=== PATIENT | male | born 1985 | race Hispanic/Latino ===

== ENCOUNTER 2024-03-10 10:58 | Inpatient (IN) | payer OTHER, SELFPAY ==
[2024-02-27 09:49] VITALS: BMI 27.8
[2024-03-10] VITALS (12 sets, daily range): BP systolic 110–137; BP diastolic 63–95; PULSE 75–99; RESP 12–20; TEMP 36–36.6; O2SAT 92–97; BMI 27.8
--- NOTE | 2024-03-10 | DI.RAD.S_ITS ---
PROCEDURE: XR LUMBAR SPINE 2-3V INDICATIONS: TLIF L5-S1 TECHNIQUE: Fluoroscopic views of the lumbar spine were acquired. COMPARISON: None. FINDINGS: Intraoperative images demonstrate an L5-S1 TLIF in progress. IMPRESSION: Intraoperative images of a L5-S1 TLIF in progress. Please see the operative report for further details. Dictated by: Chris Gordillo M.D. on 03/10/2024 at 16:41 Approved by: Chris Gordillo M.D. on 03/10/2024 at 16:42
[2024-03-10] MEDS: ACETAMINOPHEN 325 MG TABLET 975 MG PO (11:34)
[2024-03-10] MEDS: LACTATED RINGERS 1,000 ML 42 ML IV (11:36)
--- NOTE | 2024-03-10 11:48 | PM.PREOP ---
Pre-operative Note Interval Note History & Physical reviewed/Exam performed by Physician: Yes Changes to H&P: No
[2024-03-10] MEDS: CEFAZOLIN 2 GM/100 ML PREMIX 100 ML IV ×2 (12:25→21:13)
--- NOTE | 2024-03-10 12:47 | SUR.OPER ---
Prone on spine table, head in foam head support, padded chest and pelvic supports, gel pad at knees, lower legs supported by pillows; nipples, genitalia and toes free of pressure, arms secured on foam padded arm boards at <90 degrees abduction. Tape over blanket at thigh secured to table.
[2024-03-10] MEDS: BUPIVACAINE 0.25% (PF) 60 ML, EPINEPHrine 0.15 MG INJ (12:55)
[2024-03-10] MEDS: BUPIVACAINE LIPOSOME 266 MG/20 ML VIAL INJ (13:03)
--- NOTE | 2024-03-10 14:11 | PM.OP.1 ---
Operative Date/Time/Diagnoses Date of procedure: 03/10/24 Time of procedure: 12:30 Pre-op diagnosis: 1. L5-S1 history of hemilaminectomy with scarring 2. Lumbar recurrent disc herniation and radiculopathy Post-op diagnosis: same Procedure & Clinicians Procedure: 1. L5-S1 Postero-lateral and posterior interbody fusion 2. L5-S1 interbody cage placement. 3. L5-S1 decompressive laminectomy with bilateral facetecomies 4. L5-S1 Posterior non-segmental instrumentation 5. [place] of bone marrow from iliac crest 6. Utilization of microsurgical technique and operating microscope Same procedure as scheduled: Yes Indications: Patient has been having chronic back pain and worsening lumbar radiculopathy. Patient had prior lumbar surgery at L5-S1 with left-sided hemilaminectomy. Patient's MRI shows recurrent disc herniation L5-S1 with significant left-sided lateral recess and foraminal stenosis correlating with his symptoms. Patient failed multiple conservative management with worsening pain weakness and numbness in his lower extremity. Patient has been having difficulty performing activity of daily living. After discussing risks benefits of treatment options, patient elected proceed with surgery. Surgeon: Roya Shen Glass Decorator: Vijaya Stoner Click Yes if Unassisted: No Anesthesia Type: General Operative Notes Closure Type: primary Specimen(s): none sent Prosthetic devices, grafts, tissues, transplants, or devices: Globus revolve screws, Rise cage Estimated Blood Loss (mL): 50 Blood products transfused: none Procedure in detail: Patient was seen in the preoperative area. Risks and benefits of the surgery was discussed with the patient. Informed consent was obtained from the patient and placed in the chart. Surgical site was marked. Patient was taken to the operative room. General anesthesia was administered. Prophylactic antibiotic was given to the patient less than 30 min before the incision was made. Patient was placed into a prone position on the Clif table. Patient's back was then prepped and draped in the sterile fashion. Time-out was performed at this time. Using AP and lateral C-arm imaging the interval between L5-S1 was identified and marked on patient's back. A 2 inch incision 2 in from midline was made on the left side first. The fascia was incised in line with skin incision. Globus MARS retractors was placed inside the incision and docked onto the L5 lamina. Using microsurgical technique and operating microscope, a L5 laminectomy and L5-S1 facetectomy was performed using a Kerrison rongeur. Patient was found have severe lateral recess and neural foramen stenosis which was fully decompressed after the laminectomy facetectomy. The laminectomy and facetectomy was performed in order to decompress patient's cauda equina as well as the nerve roots exiting at the L5-S1 level. More than 75% of the facets were removed during the process of decompression rendering L5-S1 level grossly unstable and required a fusion procedure at the same time. The disc space at L5-S1 was identified. And a total diskectomy was performed at L5-S1 level. The endplates were decorticated using a rasp and shaver. The total diskectomy and decortication was performed at L5-S1 level in order to to accomplish a L5-S1 fusion. The local bone from the laminectomy and facetectomy was saved for local bone grafting. After the total diskectomy and decortication was completed,Viacel bone graft material was combined with local bone that was harvested earlier. At this time, a separate skin is incision was made over the iliac crest on the right. A Jamshidi needle was inserted into the iliac crest through a separate skin incision. 5 cc of bone marrow aspiration was obtained through the separate skin incision using a Jamshidi needle from the iliac crest. The bone marrow aspiration was combined with local bone and the Viacel bone grafting material. The bone grafting material was placed into the L5-S1 interbody space along with a expandable cage. The cage was expanded to its maximum height using the torque limiting screwdriver. At this time a mirror image incision was made on the right side. The fascia was incised in line with the skin incision. Globus MARS retractor was inserted and docked onto the L5-S1 posterolateral gutter. Using the power drill, posterior-lateral decortication was performed at L5-S1 level until bleeding cortical bone was identified. The remaining bone grafting material was placed into the L5-S1 posterior lateral gutter he order to accomplish posterolateral fusion at the L5-S1 level. Using the double C-arm technique, pedicle screws were placed into the L5-S1 pedicles bilaterally. This was done by placing the Jamshidi needle into the pedicles, then placing the guidewires over the Jamshidi needle, and finally placing the cannulated screws over the guidewires bilaterally. After the pedicle screws were placed, 2 titanium rods was locked into the heads of the pedicle screws using locking caps and torque limiting screwdriver. After all the hardware was placed, and confirmed with AP and lateral C-arm imaging, the wound was then irrigated with sterile normal saline and packed with Ray-Elli gauze for 3 min to accomplish hemostasis. After the gauze was removed the deep fascia was closed with #1 Vicryl suture. The subcutaneous layer was closed with 2-0 Vicryl. The skin was closed with skin nova. Patient tolerated the procedure well. There were no complications. Patient was woken up from anesthesia and transferred to recovery room in stable condition. The Operation could not have been safely performed without compromising the technical result or length of the procedure, without the assistance of a skilled nursing surgical services director. The nursing surgical services director was medically necessary for proper positioning, retraction and manipulation of instruments, proper exposure, surgical preparation, and manipulation of tissue. Neuro monitoring was utilized throughout entire procedure. The signals were stable throughout entire procedure without disturbance. Complications: none Post-operative Condition: stable Disposition: PACU Plan for aftercare: Admit to inpatient hospital
[2024-03-10] MEDS: ONDANSETRON 4 MG/2 ML INJ IV (14:28)
[2024-03-10] MEDS: OXYCODONE IR 5 MG TABLET PO ×2 (14:29→15:31)
[2024-03-10] MEDS: hydrOXYzine HCL 25 MG TABLET 50 MG PO (14:29)
[2024-03-10] MEDS: HYDROMORPHONE 1 MG INJ IV ×2 (14:31→14:40)
[2024-03-10] MEDS: diazePAM 10 MG/2 ML SYRINGE 2 MG IV (14:54)
[2024-03-10] MEDS: LACTATED RINGERS 1,000 ML 125 ML IV ×2 (15:30→20:20)
--- NOTE | 2024-03-10 15:50 | PT.IIE ---
Current Diagnoses Spinal stenosis, lumbar region with neurogenic claudication (03/10/24) Postlaminectomy syndrome, not elsewhere classified (03/10/24) Surgery Performed Operation Date: 03/10/24 12:15 Actual Procedures p L5-S1 TLIF(Not Applicable) - Roya Shen MD Surgical History (Last Updated 02/27/24 @ 10:17 by Keara Rossi, RN) History of right inguinal hernia repair Hx of laminectomy Hx of microdiscectomy Medical History (Last Updated 02/27/24 @ 10:17 by Keara Rossi, RN) ADD (attention deficit disorder) Depression HTN (hypertension) Physical Therapy Inpatient Evaluation/Re-Eval M1 PT/OT-IP Prior Functional Status Start: 03/10/24 16:34 Freq: NEEDED Status: Active Protocol: Document 03/10/24 15:50 AB (Rec: 03/10/24 16:55 AB [id number]) Medical Review Prior Functional Status Medical History Reviewed Yes Communication able to make needs known Mobility and Gait spouse provided PLOF and home set up: stated that pt was independent with all mobilities and ambulation without AD Social History Household Members spouse,children Living Arrangements House Number of Floors (Floors) One Floor Number of Stairs To Enter/Railing? 1 step without railing to enter. 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 Additional Social History Comment spouse will be off work to assist pt pt works for a [employer] M2 PT-IP Current Condition Start: 03/10/24 16:34 Freq: NEEDED Status: Active Protocol: Document 03/10/24 15:50 AB (Rec: 03/10/24 16:55 AB [id number]) Physical Therapy Current Condition Current Condition Evaluation Date 03/10/24 Treatment Diagnosis s/p L5S1 TLIF; difficulty in walking Onset Date 03/10/24 M3 PT-IP Subjective Start: 03/10/24 16:34 Freq: NEEDED Status: Active Protocol: Document 03/10/24 15:50 AB (Rec: 03/10/24 16:55 AB [id number]) Subjective Physical Therapy Visit Type Type Initial Evaluation Visit Start Time 15:50 Visit Stop Time 16:30 Number of TEST AND RESEARCH REACTOR OPERATOR Visits 0 Physical Therapy Visit Comments Patient Comments c/o high back pain and wanting to move to relieve pain; pt is very restless Therapy Pain Assessment Pain When Pain Assessed At Rest Pain Present Pain Present Pain Reported Location Back Intensity 10 Scale Used Numeric (0 - 10) Pain Behaviors Facial Grimacing,Guarding, Holding Area,Moaning Pain Management Techniques Apply Cold,Distraction, Modification of Treatment,Re- positioning,Timing of Activity with Medications M4 PT-IP Mobility and Gait Start: 03/10/24 16:34 Freq: NEEDED Status: Active Protocol: Document 03/10/24 15:50 AB (Rec: 03/10/24 16:55 AB [id number]) PT-Bed Mobility Assessment Rolling Type of Rolling Log Rolling Level of Assist Maximal Assistance Sit to Supine Sit to Supine Maximum Assistance,1 Person Assistance,2 Person Assistance PT-Transfer Assessment Sit to and From Stand Sit to and from Stand Maximum Assistance,1 Person Assistance,2 Person Assistance ,Use of Upper Extremities Equipment Transfer Assistive Device Gait Belt,Front Wheeled Walker Orthotic/Prosthetic Devices or Brace: No Transfers Transfer Destination Bed,Chair Transfer Technique Stand Step Pivot Transfer Ability Level of Assist Maximum Assistance,1 Person Assistance,2 Person Assistance ,Use of Upper Extremities Comments Mobility Comments checked on pt and nurse in room assisting pt in standing. pt c/o increase back pain and is restless but at the same time is somnolent with eyes closed in standing. nurse stated that pt is having a lot of pain but all pain meds are given. pt wanting to move move. PT assisted. Instructed pt to sit back on EOB until chair is ready for pt. pt required max A for controlled descent to EOB and max cues. pt unsure of what he wants position fox and wants to get up again. educated pt on back precautions. pt completed sit to stand max A x 1-2 and max cues. sligth knee bending in standing and cued pt for upright posture and quads activation. pt ambulated ~ 3 ft to the chair using FWW max A x1-2 and max cues. positioned pt on chair. pt initially sitting upright but stated that he is still not comfortable. tried to elevated LE up but pt stated that pain is more with LE up. pt is very restless. opted to assist pt back to bed. sit to stand from chair max Ax 1-2 and max cues. step transfer back to bed using FWW max A x 1-2 and max cues. (+) knee buckling x 2. pt completed log roll sit to supine max Ax 1-2 and max cues. positioned pt in sidelying with ice pack on. talked with spouse and obtained PLOF and home set up. pt continues to be restless and stated that he cannot stay on his side. repositioned pt on his back. positioned with pillows under LE to relieve back pain. call light and table placed next to pt. educated pt and spouse regarding pt's back precautions and log roll bed mobility. Left pt with spouse. Gait Assessment Gait Gait Assistance Required: Maximum Assistance,1 Person Assist,2 Person Assist Distance (Feet) 3 Able to Maintain Weight Bearing Status Yes During Gait Assistive Devices Assistive Device Gait Belt,Front Wheeled Walker Orthotic/Prosthetic Devices or Brace: No Gait Deviations General Gait Pattern Ataxic,Decreased Stride Length ,Decreased Feet Clearance,Step -to Gait Factors Limiting Gait Function Factors Limiting Gait Function Decreased Activity Tolerance, Decreased Sensation,Decreased Strength,Difficulty Following Directions,Incoordination, Limited Range of Motion,Pain, Poor Balance,Poor Safety Awareness PT-Balance Assessment Sitting Balance and Reactions Static Sitting Balance Ability Good Dynamic Sitting Balance Ability Fair Standing Balance and Reactions Static Standing Balance Ability Poor Dynamic Standing Balance Ability Poor Device Used FWW M5 PT-IP Objective Assessments Start: 03/10/24 16:34 Freq: NEEDED Status: Active Protocol: Document 03/10/24 15:50 AB (Rec: 03/10/24 16:55 AB [id number]) Orientation Orientation/Cognition Level of Alertness Alert Orientation Name,Age,Place,Situation Language Function Ability No Deficits Noted Safety Awareness Decreased Safety Awareness Memory Description No Deficits Noted Gross Range of Motion Lower Extremity ROM Assessment Within Functional Limits Strength Comments Strength Comments pt with c/o increase pain with moving LE limiting MMT testing Sensation Assessment Sensation Sensation Description Numbness,Tingling Comments Sensation Comments c/o numbness/tingling on BLE Muscle Tone Muscle Tone WNL Yes M6 PT-IP Treatment Start: 03/10/24 16:34 Freq: NEEDED Status: Active Protocol: Document 03/10/24 15:50 AB (Rec: 03/10/24 16:55 AB [id number]) Physical Therapy Treatment Education Education Provided Precautions,Weight Bearing Status,Post-Op Packet,Safety M7 PT-IP Assessment and Plan Start: 03/10/24 16:34 Freq: NEEDED Status: Active Protocol: Document 03/10/24 15:50 AB (Rec: 03/10/24 16:55 AB [id number]) PT Summary Assessment and Plan Potential Rehabilitation Potential Fair Status of Condition at Evaluation Evolving Summary Impairments Pain,ROM,Strength,Balance, Coordination,Sensation,Tone, Cognition,Bed Mobility, Transfers,Gait,Activity Tolerance Assessment Summary pt is a 38 y/o M s/p L5S1 TLIF POD 0. pt with c/o increase LBP affecting mobility and safety. pt also somnolent affecting following directions and safety awareness. pt requiring max Ax 1-2 and max cues with (+) knee buckling . pt unable to tolerate much activity due to pain. pt's pain influencing current level of assistance. d/c plan depending on progress. spouse will be able to assist pt at home. caregiver training will be conducted when appropriate . will continue to assess. Goals Bed Mobility Goal Independent Transfer Goal Independent,Front Wheeled Walker Gait Goal Independent,Front Wheel Walker Gait Distance 200 Other Goals up/down 1 step using FWW mod I Days to Meet Goals 5 Frequency of Treatment Frequency Of Treatment Twice a Day Treatment Plan Physical Therapy Treatment Plan Bed Mobility Training,Transfer Training,Gait Training, Therapeutic Exercise,Balance Retraining,Post Op Education, Discharge Planning,Hot or Cold Pack,Neuromuscular Re-ed, Coordination Retraining,Manual Therapy Precautions Lumbar Precautions Log Roll,No Twisting,Limit Bending,Lifting Restriction of 10 lbs,Gait Belt above Incisional Area Recommendations To Nursing Amount of Assist Needed 2 Person Assist Discharge Recommendations PT Discharge Recommendations Home with 24/ Assist Available,Home Health Transportation Needs at Discharge Private Vehicle,Wheelchair/ Cabulance
[2024-03-10] MEDS: HYDROMORPHONE 0.5 MG INJ IV ×3 (16:46→23:08)
--- NOTE | 2024-03-10 17:14 | PC.NURSE ---
Patient arrived from PACU at 1510 this afternoon. He is alert, awake OX4, VSS, on 2 LNC. He expresses severe back pain despite many different narcotics and meds given in recovery. He is restless and not able to get comfortable, asks to sit at edge of bed. PT arrived and was able to get patient out of bed into chair. He wasn't able to tolerate sitting long and was assisted back to bed. Frequent POSTOP VS, admission assessment completed, PRN pain medications, IVF LR at 125mL/hr, encouraged IS use, bed alarm, call light in reach, and frequent rounding. Patient voided this evening w/o difficulty, denies n/v and able to tolerate a meal. at bedside supportive.
[2024-03-10] MEDS: OXYCODONE IR 10 MG TABLET PO ×2 (18:14→22:26)
[2024-03-10] MEDS: ACETAMINOPHEN 325 MG TABLET 650 MG PO (18:18)
[2024-03-10] MEDS: SENNOSIDES 8.6 MG TABLET 17.2 MG PO (21:13)
[2024-03-10] MEDS: DOCUSATE 100 MG CAPSULE PO (21:13)
[2024-03-11] MEDS: ACETAMINOPHEN 325 MG TABLET 650 MG PO ×4 (01:03→21:33)
[2024-03-11] MEDS: OXYCODONE IR 10 MG TABLET PO ×7 (01:03→21:33)
[2024-03-11] MEDS: CALCIUM CARBONATE 500 MG TAB 1000 MG PO ×2 (01:28→09:08)
[2024-03-11] MEDS: ONDANSETRON 4 MG ODT SL (03:43)
[2024-03-11] MEDS: CEFAZOLIN 2 GM/100 ML PREMIX 100 ML IV (05:03)
[2024-03-11] MEDS: HYDROMORPHONE 0.5 MG INJ IV ×4 (05:33→20:33)
[2024-03-11 05:41] VITALS: BP 107/66; PULSE 86; RESP 17; TEMP 36.4; O2SAT 96
[2024-03-11 08:00] VITALS: BP 122/62; PULSE 82; RESP 16; TEMP 36.6; O2SAT 98
--- NOTE | 2024-03-11 08:00 | P.PN_ITS ---
Subjective Subjective Interval history: Frank is a pleasant 38 year old male who is POD#1 s/p L5-S1 postero-lateral and posterior interbody fusion by Dr. Shen. This morning patient reports he is doing okay overall although he states he is still having significant pain. Difficulty sleeping d/t the pain. Feels okay at rest but says as soon as his IV Dilaudid wears off he gets shooting pains from his back down his legs. Has been putting an ice back on his back and he feels this has helped his pain. He has been able to get up and walk 3x since surgery but has not completed any formal PT yet. He is urinating well w/o issue using bedside urinal. Lives at home with who is willing and able to aid in his post-op care. He expresses concerns about d/c to home as he still has poor pain control and has not been able to ambulate more than a few feet at a time. Denies fever, chills, chest pain, SOB, nausea, vomiting. Exam Vital Signs (past 8 hours): - 03/11/24 05:41 Temperature 97.5 F L Pulse Rate 86 Respiratory Rate 17 Blood Pressure 107/66 Pulse Oximetry 96 Oxygen Delivery Method Room Air Oxygen Flow Rate 0 Narrative Exam Narrative: Patient lying comfortably in bed during our interview today. No acute distress. AOx3. 5/5 strength with DF, PF, EHL bilaterally. Gross sensation intact throughout bilateral lower extremities. Calves soft and non-tender bilaterally. Brisk capillary refill. Post-surgical dressing dressing clean, dry and intact over the lumbar spine. PFSH Medical History (Updated 02/27/24 @ 10:17 by Keara Rossi RN) HTN (hypertension) ADD (attention deficit disorder) Depression Surgical History (Updated 02/27/24 @ 10:17 by Keara Rossi RN) Hx of laminectomy Hx of microdiscectomy History of right inguinal hernia repair Social History household members: spouse and children Smoking Status: Never smoker alcohol intake: current Assessment & Plan Post-op Postoperative Procedures: Procedures Operation Date: 03/10/24 12:15 Actual Procedure Side Surgeon p L5-S1 TLIF Not Applicable Roya Shen MD Postoperative plan narrative: 1) Likely discharge to home tomorrow with pending improvement in pain control and progress with PT. 2) Continue multimodal pain management with ice to the back for additional pain control. Discussed trying to avoid IV pain medication today if able to tolerate pain w/ PO medication. Will consider d/c w/ medrol if needed if shooting pains continue throughout the day. 3) Mechanical DVT prophylaxis. SCDs to be worn while in bed. 4) Work with physical therapy to improve mobility. 5) Keep dressing intact, clean, dry until 2 week postop appointment. No soaking the incision site in pools or tubs. No topical ointments or creams to the incision site. 6) Follow up at [facility] orthopedics in 2 weeks for a postop appointment and wound check. All patient's questions were answered, they demonstrates understanding and are in agreement with the plan. Call our office if any questions or concerns arise.
[2024-03-11] MEDS: DULOXETINE 20 MG CAPSULE PO (08:06)
[2024-03-11 08:07] VITALS: BP 122/62; PULSE 86
[2024-03-11] MEDS: METOPROLOL ER 50 MG TABLET 100 MG PO (08:07)
[2024-03-11] MEDS: SODIUM CHLORIDE 0.9% FLUSH 10 ML IV ×2 (08:08→21:34)
[2024-03-11] MEDS: DOCUSATE 100 MG CAPSULE PO ×2 (08:08→21:33)
--- NOTE | 2024-03-11 08:50 | PT.IPTN ---
Current Diagnoses Spinal stenosis, lumbar region with neurogenic claudication (03/10/24) Postlaminectomy syndrome, not elsewhere classified (03/10/24) Surgery Performed Operation Date: 03/10/24 12:15 Actual Procedures p L5-S1 TLIF(Not Applicable) - Roya Shen MD Physical Therapy Treatment Note M2 PT-IP Current Condition Start: 03/10/24 16:34 Freq: NEEDED Status: Active Protocol: Document 03/10/24 15:50 AB (Rec: 03/10/24 16:55 AB [id number]) Physical Therapy Current Condition Current Condition Evaluation Date 03/10/24 Treatment Diagnosis s/p L5S1 TLIF; difficulty in walking Onset Date 03/10/24 M3 PT-IP Subjective Start: 03/10/24 16:34 Freq: NEEDED Status: Active Protocol: Document 03/11/24 09:25 TS (Rec: 03/11/24 09:43 TS [id number]) Subjective Physical Therapy Visit Type Type Treatment Note Visit Start Time 08:50 Visit Stop Time 09:15 Number of WHARF HELPER Visits 1 Physical Therapy Visit Comments Patient Comments Pt reports pain is 6/10 with movement, he is having increased pain in his Le's. Therapy Pain Assessment Pain When Pain Assessed During Mobility Pain Present Pain Present Pain Reported Location Back Intensity 6 Scale Used Numeric (0 - 10) M4 PT-IP Mobility and Gait Start: 03/10/24 16:34 Freq: NEEDED Status: Active Protocol: Document 03/11/24 09:25 TS (Rec: 03/11/24 09:43 TS [id number]) PT-Bed Mobility Assessment Rolling Type of Rolling Log Rolling Level of Assist Maximal Assistance Supine to Sit Supine to Sit Standby Assistance Scooting Scooting to Edge of Bed Standby Assistance PT-Transfer Assessment Sit to and From Stand Sit to and from Stand Standby Assistance Equipment Transfer Assistive Device Gait Belt,Front Wheeled Walker Orthotic/Prosthetic Devices or Brace: No Comments Mobility Comments Pt recalls 1/3 spinal precautions(no twisting). Logroll to L side SBA, pt demonstrates good carryover. Supine to sit with BUE support SBA. Pt performs STS with FWW SBA. He ambulates in the hallway ~100'SBA with FWW. He performs steps x1 with FWW CGA . Pt ambualtes back to the room, was left on toilet, nursing notified. Gait Assessment Gait Gait Assistance Required: Standby Assistance,1 Person Assist Distance (Feet) 100 Able to Maintain Weight Bearing Status Yes During Gait Assistive Devices Assistive Device Gait Belt,Front Wheeled Walker Orthotic/Prosthetic Devices or Brace: No Gait Deviations General Gait Pattern Ataxic,Decreased Stride Length ,Decreased Feet Clearance,Step -to Gait Factors Limiting Gait Function Factors Limiting Gait Function Decreased Activity Tolerance, Decreased Sensation,Decreased Strength,Difficulty Following Directions,Incoordination, Limited Range of Motion,Pain, Poor Balance,Poor Safety Awareness Stair Climbing Assessment Evaluation Level of Assist On Stairs Contact Guard Assistance Devices Stair Climbing Assistive Devices Front Wheel Walker Technique/Endurance Stair Climbing Direction Ascend and Descend Stair Climbing Technique Step to Step Number of Steps Climbed 1 PT-Balance Assessment Sitting Balance and Reactions Static Sitting Balance Ability Good Dynamic Sitting Balance Ability Fair Standing Balance and Reactions Static Standing Balance Ability Good Dynamic Standing Balance Ability Fair Device Used FWW M5 PT-IP Objective Assessments Start: 03/10/24 16:34 Freq: NEEDED Status: Active Protocol: Document 03/10/24 15:50 AB (Rec: 03/10/24 16:55 AB [id number]) Orientation Orientation/Cognition Level of Alertness Alert Orientation Name,Age,Place,Situation Language Function Ability No Deficits Noted Safety Awareness Decreased Safety Awareness Memory Description No Deficits Noted Gross Range of Motion Lower Extremity ROM Assessment Within Functional Limits Strength Comments Strength Comments pt with c/o increase pain with moving LE limiting MMT testing Sensation Assessment Sensation Sensation Description Numbness,Tingling Comments Sensation Comments c/o numbness/tingling on BLE Muscle Tone Muscle Tone WNL Yes M6 PT-IP Treatment Start: 03/10/24 16:34 Freq: NEEDED Status: Active Protocol: Document 03/11/24 09:25 TS (Rec: 03/11/24 09:43 TS [id number]) Physical Therapy Treatment Education Education Provided Precautions,Weight Bearing Status,Post-Op Packet,Safety M7 PT-IP Assessment and Plan Start: 03/10/24 16:34 Freq: NEEDED Status: Active Protocol: Document 03/11/24 09:25 TS (Rec: 03/11/24 09:43 TS [id number]) PT Summary Assessment and Plan Potential Rehabilitation Potential Fair Summary Impairments Pain,ROM,Strength,Balance, Coordination,Sensation,Tone, Cognition,Bed Mobility, Transfers,Gait,Activity Tolerance Progress Towards Goals Progressing Toward Goals Assessment Summary Pt is doing well with his mobility. He is sBA for bed mobility and STS. He progressed his gait to ~100'. He performed steps x1 with FWW . Pt has some pain in Le's but no buckling or LOB. PT is recommending home with assist. Goals Bed Mobility Goal Independent Transfer Goal Independent,Front Wheeled Walker Gait Goal Independent,Front Wheel Walker Gait Distance 200 Other Goals up/down 1 step using FWW mod I Days to Meet Goals 5 Frequency of Treatment Frequency Of Treatment Twice a Day Treatment Plan Physical Therapy Treatment Plan Bed Mobility Training,Transfer Training,Gait Training, Therapeutic Exercise,Balance Retraining,Post Op Education, Discharge Planning,Hot or Cold Pack,Neuromuscular Re-ed, Coordination Retraining,Manual Therapy Precautions Lumbar Precautions Log Roll,No Twisting,Limit Bending,Lifting Restriction of 10 lbs,Gait Belt above Incisional Area Recommendations To Nursing Amount of Assist Needed Standby Assistance Discharge Recommendations PT Discharge Recommendations Home with Assistance Transportation Needs at Discharge Private Vehicle
--- NOTE | 2024-03-11 10:09 | OT.IP.EVAL ---
Current Diagnoses Spinal stenosis, lumbar region with neurogenic claudication (03/10/24) Postlaminectomy syndrome, not elsewhere classified (03/10/24) Surgery Performed Operation Date: 03/10/24 12:15 Actual Procedures p L5-S1 TLIF(Not Applicable) - Roya Shen MD Past Medical History (Last Updated 02/27/24 @ 10:17 by Keara Rossi, RN) ADD (attention deficit disorder) Depression HTN (hypertension) Surgical History (Last Updated 02/27/24 @ 10:17 by Keara Rossi, RN) History of right inguinal hernia repair Hx of laminectomy Hx of microdiscectomy Occupational Therapy Inpatient Evaluation/Re-Eval M1 PT/OT-IP Prior Functional Status Start: 03/10/24 16:34 Freq: NEEDED Status: Active Protocol: Document 03/10/24 15:50 AB (Rec: 03/10/24 16:55 AB [id number]) Medical Review Prior Functional Status Medical History Reviewed Yes Communication able to make needs known Mobility and Gait spouse provided PLOF and home set up: stated that pt was independent with all mobilities and ambulation without AD Social History Household Members spouse,children Living Arrangements House Number of Floors (Floors) One Floor Number of Stairs To Enter/Railing? 1 step without railing to enter. 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 Additional Social History Comment spouse will be off work to assist pt pt works for a [employer] M1 PT/OT-IP Prior Functional Status Start: 03/11/24 10:11 Freq: NEEDED Status: Active Protocol: Document 03/11/24 10:11 [facility] (Rec: 03/11/24 10:22 [facility] [id number]) Medical Review Prior Functional Status Medical History Reviewed Yes Communication able to make needs known Mobility and Gait spouse provided PLOF and home set up: stated that pt was independent with all mobilities and ambulation without AD Activities of Daily Living and IADL's Pt able to do ADL and IADL but having pain. Social History Household Members spouse,children Living Arrangements House Number of Floors (Floors) One Floor Number of Stairs To Enter/Railing? One step to enter. Home Environment Standard Height Toilet,Tub/ Shower Home Equipment Front Wheel Walker,Hand Held Shower M2 OT-IP Current Condition Start: 03/11/24 10:11 Freq: Status: Active Protocol: Document 03/11/24 10:11 [facility] (Rec: 03/11/24 10:22 [facility] [id number]) Occupational Therapy Current Condition Current Condition Evaluation Date 03/11/24 Treatment Diagnosis S/P L5-S1 TLIF Diagnosis Onset Date 03/10/24 Post Operative Precautions Lumbar Precautions Log Roll,No Twisting,Limit Bending,Lifting Restriction of 10 lbs,Gait Belt above Incisional Area M3 OT- IP Subjective and Pain Start: 03/11/24 10:11 Freq: Status: Active Protocol: Document 03/11/24 10:11 [facility] (Rec: 03/11/24 10:22 [facility] [id number]) OT- Subjective Occupational Therapy Visit Type Type Initial Evaluation Visit Start Time 09:44 Visit Stop Time 10:09 Occupational Therapy Visit Comments Patient Comments Pt agreed to get up to brush his teeth. Patient/Caregiver Goals TO get better. OT Pain Assessment Pain When Pain Assessed At Rest Pain Present Pain Present Pain Reported Location Back Intensity 6 Scale Used Numeric (0 - 10) M4 OT- IP ADL's Start: 03/11/24 10:11 Freq: Status: Active Protocol: Document 03/11/24 10:11 [facility] (Rec: 03/11/24 10:22 [facility] [id number]) OT BNK-Isaq-Fgigadm General Evaluation Self-Feeding Ability Independent OT ADL-Grooming General Evaluation Grooming Ability Standby Assistance OT ADL-Oral Care General Eval Oral Care Ability Independent Comments Oral Care Comments VC to hinge at his hips or spit into a cup to best follow his back precautions. OT ADL-Dressing General Eval Lower Body Dressing Ability Maximum Assistance Comments OT Dressing Comments Able to show pt use of LB dressing equipment in which he will benefit from getting. OT ADL-Toileting Comments OT Toileting Comments Educated easier to stand and wipe, use of urinal at night, and have the FWW over the toilet when standing to urinate. OT ADL-Bathing Comments OT Bathing Comments Pt will benefit from a shower chair. Pt educated of covering the dressing for showering needs. M5 OT- IP IADL's Start: 03/11/24 10:11 Freq: Status: Active Protocol: Document 03/11/24 10:11 [facility] (Rec: 03/11/24 10:22 [facility] [id number]) OT-Instrumental Activities of Daily Living Home Safety Awareness Awareness of Need for Assistance at Home Good Awareness Ability to Problem Solve Emergency Able to Problem Solve Situations Home Safety Comments Pt's to be home to assist for 2 days and then having to return to work. Meal Preparation Meal Preparation Caregiver Provides Assist Watch Leader Watch Leader Caregiver Provides Assist M6 OT- IP Functional Cognition Start: 03/11/24 10:11 Freq: Status: Active Protocol: Document 03/11/24 10:11 [facility] (Rec: 03/11/24 10:22 [facility] [id number]) Cognitive Factors Limiting Selfcare Function Cognitive Ability Level of Alertness Alert Patient Orientation Name,Age,Birthday,Month,Date, Year,Day of Week,Place, Situation Attention Span Ability Capable of Focused Attention, Capable of Sustained Attention Ability to Follow Commands Able to Follow Multi-Step Commands Safety Awareness Underestimates Need for Assistance Cognitive Comments Cognitive Assessment Comments Pt needing vc not to twist doing log rolling needs. Also vc to keep the FWW with him at all times. OT- Vision and Hearing OT- Hearing Assessment OT- Hearing Assessment WFL OT- Vision Assessment Visual Acuity WFL M7 OT- IP Mobility and Balance Start: 03/11/24 10:11 Freq: Status: Active Protocol: Document 03/11/24 10:11 [facility] (Rec: 03/11/24 10:22 [facility] [id number]) OT- Bed Mobility Assessment Sit to Supine Sit to Supine Assist Contact Guard Assistance OT-Transfer Assessment Sit to and From Stand Sit to and from Stand Standby Assistance Transfers Transfer Ability Standby Assistance Technique Transfer Destination Bed,Chair Transfer Technique Stand Step Pivot Devices Transfer Assistive Devices Gait Belt,Front Wheeled Walker Comments Mobility Comments SBA to stand and transfer with FWW. OT- Balance Assessment Sitting Balance and Reactions Static Sitting Balance Ability Normal Dynamic Sitting Balance Ability Normal Standing Balance and Reactions Static Standing Balance Ability Good Dynamic Standing Balance Ability Good M8 OT- IP Objective Assessments Start: 03/11/24 10:11 Freq: Status: Active Protocol: Document 03/11/24 10:11 [facility] (Rec: 03/11/24 10:22 [facility] [id number]) OT Gross Range of Motion Upper Extremity Range of Motion Assessment Within Functional Limits OT Strength Comments Strength Comments WFl for needs. M9 OT- IP Assessment and Plan Start: 03/11/24 10:11 Freq: Status: Active Protocol: Document 03/11/24 10:11 [facility] (Rec: 03/11/24 10:22 [facility] [id number]) OT Summary Assessment and Plan Potential Rehabilitation Potential Excellent Analytic Complexity at Evaluation Low Summary OT Impairments Pain,Balance,Functional Mobility,Dressing,Bathing, Shower Transfers Progress Towards Goals Progressing Toward Goals Assessment Summary Pt low complexity and main barriers are pain, and reminders to incorporate his back precautions for ADL and mobility needs. Pt will benefit from getting LB dressing equipment and shower chair. Pt to go home with his when medically stable. Goals Grooming Goal Independent Dressing Goal Independent,De Alcoholizer,Sock Aid Toileting Goal Independent Bathing Goal Minimal Assistance Toilet Transfer Goal Independent Shower Transfer Goal Standby Assistance Days to Meet Goals 5 Frequency of Treatment Frequency Of Treatment Once a Day Treatment Plan OT Treatment Plan ADL Training,Patient/Family Education,Discharge Planning Discharge Recommendations OT Discharge Recommendations Home with Assistance Home Equipment Needs LB dressing equipment and shower chair. Transportation Needs at Discharge Private Vehicle
--- NOTE | 2024-03-11 11:19 | CM.DANOTE ---
Initial DCP Assessment Note Pt is a 38 yo male, resident of [place], now POD#1 from TLIF PCP: LUIS MIGUEL De Leon Payer: [employer], [employer] @ [employer] P [phone] INPT auth # [id number] Reviewed chart, pt discussed in multidisciplinary rounds this morning. Therapy has cleared pt for return home w/family to assist and pt has planned for home, patient is expected to discharge later today or tomorrow. No barriers identified at this time to patient's safe discharge home w/family to assist; close outpatient f/u recommended. CM team will plan to follow clinical course closely in case any DC needs or concerns arise. MUNIRA Smith Discharge Planning/Care Management Discharge Assessment Start: 03/11/24 11:16 Freq: Status: Active Protocol: Document 03/11/24 11:16 YASMIN (Rec: 03/11/24 11:18 YASMIN [id number]) Discharge Planning Assessment Assigned Carbon Lamp Cleaner MUNIRA Kerr DPOA/Assigned Designee Name Bridgett eLntz - Contact Information [phone] Advance Directives? No History Provided By Patient,Medical Record Prior Living Arrangements House Household Members spouse,children Type of transporation used prior to Drives own vehicle admit Independent with ADL's Yes Is patient alert and oriented? Yes Barriers to Discharge No Discharge Plan Home Transportation Arrangement Family Referrals Initiated None needed
[2024-03-11] MEDS: CYCLOBENZAPRINE 10 MG TABLET PO ×2 (14:38→23:10)
[2024-03-11 20:00] VITALS: BP 112/68; PULSE 79; RESP 14; TEMP 36.5; O2SAT 95
[2024-03-11] MEDS: SENNOSIDES 8.6 MG TABLET 17.2 MG PO (21:34)
[2024-03-12] MEDS: OXYCODONE IR 10 MG TABLET PO ×6 (00:29→15:40)
[2024-03-12] MEDS: ACETAMINOPHEN 325 MG TABLET 650 MG PO ×3 (03:31→15:41)
[2024-03-12] MEDS: CYCLOBENZAPRINE 10 MG TABLET PO ×2 (07:20→15:41)
[2024-03-12 08:00] VITALS: BP 125/80; PULSE 73; RESP 18; TEMP 36.2; O2SAT 96
--- NOTE | 2024-03-12 08:30 | PT.IPTN ---
Current Diagnoses Spinal stenosis, lumbar region with neurogenic claudication (03/10/24) Postlaminectomy syndrome, not elsewhere classified (03/10/24) Surgery Performed Operation Date: 03/10/24 12:15 Actual Procedures p L5-S1 TLIF(Not Applicable) - Roya Shen MD Physical Therapy Treatment Note M2 PT-IP Current Condition Start: 03/10/24 16:34 Freq: NEEDED Status: Active Protocol: Document 03/10/24 15:50 AB (Rec: 03/10/24 16:55 AB [id number]) Physical Therapy Current Condition Current Condition Evaluation Date 03/10/24 Treatment Diagnosis s/p L5S1 TLIF; difficulty in walking Onset Date 03/10/24 M3 PT-IP Subjective Start: 03/10/24 16:34 Freq: NEEDED Status: Active Protocol: Document 03/12/24 09:13 TS (Rec: 03/12/24 09:21 TS [id number]) Subjective Physical Therapy Visit Type Type Treatment Note Visit Start Time 08:30 Visit Stop Time 08:45 Number of ARBOR PRESS OPERATOR Visits 2 Physical Therapy Visit Comments Patient Comments Pt found resting in the chair, contnues to report pain in legs when up and walking, he is agreeable to PT. Therapy Pain Assessment Pain When Pain Assessed At Rest Pain Present Pain Present Pain Reported Location Back Intensity 6 Scale Used Numeric (0 - 10) M4 PT-IP Mobility and Gait Start: 03/10/24 16:34 Freq: NEEDED Status: Active Protocol: Document 03/12/24 09:13 TS (Rec: 03/12/24 09:21 TS [id number]) PT-Transfer Assessment Sit to and From Stand Sit to and from Stand Standby Assistance Equipment Transfer Assistive Device Gait Belt,Front Wheeled Walker Orthotic/Prosthetic Devices or Brace: No Comments Mobility Comments STS with FWW SBA. Pt ambulates ~100SBA with FWW. Pt reports increasing pain in Le's while ambulating. Pt was left back in the chair, all needs met. Gait Assessment Gait Gait Assistance Required: Standby Assistance,1 Person Assist Distance (Feet) 100 Able to Maintain Weight Bearing Status Yes During Gait Assistive Devices Assistive Device Gait Belt,Front Wheeled Walker Orthotic/Prosthetic Devices or Brace: No Gait Deviations General Gait Pattern Ataxic,Decreased Stride Length ,Decreased Feet Clearance,Step -to Gait Factors Limiting Gait Function Factors Limiting Gait Function Decreased Activity Tolerance, Decreased Sensation,Decreased Strength,Difficulty Following Directions,Incoordination, Limited Range of Motion,Pain, Poor Balance,Poor Safety Awareness PT-Balance Assessment Sitting Balance and Reactions Static Sitting Balance Ability Normal Dynamic Sitting Balance Ability Normal Standing Balance and Reactions Static Standing Balance Ability Good Dynamic Standing Balance Ability Good Device Used FWW M5 PT-IP Objective Assessments Start: 03/10/24 16:34 Freq: NEEDED Status: Active Protocol: Document 03/10/24 15:50 AB (Rec: 03/10/24 16:55 AB [id number]) Orientation Orientation/Cognition Level of Alertness Alert Orientation Name,Age,Place,Situation Language Function Ability No Deficits Noted Safety Awareness Decreased Safety Awareness Memory Description No Deficits Noted Gross Range of Motion Lower Extremity ROM Assessment Within Functional Limits Strength Comments Strength Comments pt with c/o increase pain with moving LE limiting MMT testing Sensation Assessment Sensation Sensation Description Numbness,Tingling Comments Sensation Comments c/o numbness/tingling on BLE Muscle Tone Muscle Tone WNL Yes M6 PT-IP Treatment Start: 03/10/24 16:34 Freq: NEEDED Status: Active Protocol: Document 03/12/24 09:13 TS (Rec: 03/12/24 09:21 TS [id number]) Physical Therapy Treatment Education Education Provided Precautions,Weight Bearing Status,Post-Op Packet,Safety M7 PT-IP Assessment and Plan Start: 03/10/24 16:34 Freq: NEEDED Status: Active Protocol: Document 03/12/24 09:13 TS (Rec: 03/12/24 09:21 TS [id number]) PT Summary Assessment and Plan Potential Rehabilitation Potential Fair Summary Impairments Pain,ROM,Strength,Balance, Coordination,Sensation,Tone, Cognition,Bed Mobility, Transfers,Gait,Activity Tolerance Progress Towards Goals Progressing Toward Goals Assessment Summary Pt continues to do well with his mobility. HE is SBA for STS and for ambulation with FWW. He continues to have pain in his legs and pt will receiving steroids. PT is recommending home with assist. Goals Bed Mobility Goal Independent Transfer Goal Independent,Front Wheeled Walker Gait Goal Independent,Front Wheel Walker Gait Distance 200 Other Goals up/down 1 step using FWW mod I Days to Meet Goals 5 Frequency of Treatment Frequency Of Treatment Twice a Day Treatment Plan Physical Therapy Treatment Plan Bed Mobility Training,Transfer Training,Gait Training, Therapeutic Exercise,Balance Retraining,Post Op Education, Discharge Planning,Hot or Cold Pack,Neuromuscular Re-ed, Coordination Retraining,Manual Therapy Precautions Lumbar Precautions Log Roll,No Twisting,Limit Bending,Lifting Restriction of 10 lbs,Gait Belt above Incisional Area Recommendations To Nursing Amount of Assist Needed Standby Assistance Discharge Recommendations PT Discharge Recommendations Home with Assistance, Outpatient PT Transportation Needs at Discharge Private Vehicle
--- NOTE | 2024-03-12 08:32 | PM.PNPO.1 ---
Subjective Subjective Date Patient Seen: 03/12/24 Time Patient Seen: 08:32 Interval history: Patient states he is having difficulty getting his pain under control. Required 2 doses of IV Dilaudid yesterday. And requires oral opiates every 3-4 hours. States the pain is throughout the lumbar region. Also states he has had increased numbness tingling and pain down both lower extremities along the posterior calf and thigh right is worse than left. Able to ambulate with a walker throughout the room and work with physical therapy. Denies any nausea vomiting fever chills or shortness of breath Exam Vital Signs (past 8 hours): Oxygen Delivery Method Room Air Oxygen Flow Rate 0 Narrative Exam Narrative: Patient found sitting comfortably in the chair. Dressing is clean and dry. Patient describes increased pain to compression of the posterior thigh and calf bilaterally. No notable signs of warmth erythema or swelling of the lower extremities. 4/5 strength in hip flexors, quadriceps, hamstrings, DF, PF, EHL bilaterally. Sensation to light touch intact throughout BLE. PFSH Medical History (Updated 02/27/24 @ 10:17 by Keara Rossi RN) HTN (hypertension) ADD (attention deficit disorder) Depression Surgical History (Updated 02/27/24 @ 10:17 by Keara Rossi RN) Hx of laminectomy Hx of microdiscectomy History of right inguinal hernia repair Social History household members: spouse and children Smoking Status: Never smoker alcohol intake: current Assessment & Plan Post-op Postoperative Procedures: Procedures Operation Date: 03/10/24 12:15 Actual Procedure Side Surgeon p L5-S1 TLIF Not Applicable Roya Shen MD Postoperative day: 2 Postoperative plan: routine post-op care and ambulate Postoperative plan narrative: Dexamethasone 4 mg 1 time this morning to assist with alleviate increasing numbness and tingling down the lower extremities. Continue with multimodal pain control. Work with physical therapy to assist with ambulation. Plan to discharge today or tomorrow. Time Spent With Patient Time with patient: 15-24 minutes Quality VTE Deep Vein Thrombosis/Pulmonary Embolism Present on Admission: No
--- NOTE | 2024-03-12 08:55 | OT.IPNOTE ---
Spoke to pt and , pt to get ADL equipment needs suggested yesterday. Pt doing well and no further OT needs at this time. Discharge from OT services. NO charge
[2024-03-12] MEDS: DEXAMETHASONE 4 MG/ML VIAL IV (09:49)
[2024-03-12] MEDS: DOCUSATE 100 MG CAPSULE PO (09:49)
[2024-03-12 09:52] VITALS: BP 109/63; PULSE 75
[2024-03-12] MEDS: DULOXETINE 20 MG CAPSULE PO (09:52)
[2024-03-12] MEDS: SODIUM CHLORIDE 0.9% FLUSH 10 ML IV (09:55)
--- NOTE | 2024-03-12 15:10 | P.DS_ITS ---
History of Present Illness History of Present Illness Date Patient Seen: 03/12/24 Chief complaint: Translaminar Interbody Fusion/Laminotomy Narrative: Patient has been having chronic back pain and worsening lumbar radiculopathy. Patient had prior lumbar surgery at L5-S1 with left-sided hemilaminectomy. Patient's MRI shows recurrent disc herniation L5-S1 with significant left-sided lateral recess and foraminal stenosis correlating with his symptoms. Patient failed multiple conservative management with worsening pain weakness and numbness in his lower extremity. Patient has been having difficulty performing activity of daily living. After discussing risks benefits of treatment options, patient elected proceed with surgery. Discharge Providers Provider Date of admission: 03/10/24 10:58 Discharge Date: 03/12/24 Primary care physician: LUIS MIGUEL De Leon Consults: 03/10/24 15:11 Consult to Occupational Therapy Evaluate & Treat Comment: Physician Instructions: Evaluate and treat Consult to Physical Therapy Evaluate & Treat Comment: Physician Instructions: Evaluate and Treat Discharge provider: Trace Glaser PA-C Summary Hospital Course Discharge Diagnosis: 1. L5-S1 history of hemilaminectomy with scarring 2. Lumbar recurrent disc herniation and radiculopathy Hospital Course: Procedure: 1. L5-S1 Postero-lateral and posterior interbody fusion 2. L5-S1 interbody cage placement. 3. L5-S1 decompressive laminectomy with bilateral facetecomies 4. L5-S1 Posterior non-segmental instrumentation 5. [place] of bone marrow from iliac crest 6. Utilization of microsurgical technique and operating microscope Same procedure as scheduled: Yes Surgeon: Roya Shen [employer] Lecturer: Vijaya Stoner Click Yes if Unassisted: No Anesthesia Type: General Operative Notes Closure Type: primary Specimen(s): none sent Prosthetic devices, grafts, tissues, transplants, or devices: Globus revolve screws, Rise cage Estimated Blood Loss (mL): 50 Status at Discharge Cognitive/behavioral status at discharge: oriented Functional status at discharge: uses cane/walker Overall status at discharge: patient is progressing back to baseline Exam Vital Signs (past 8 hours): - 03/12/24 08:00 03/12/24 09:52 Temperature 97.1 F L Pulse Rate 73 75 Respiratory Rate 18 Blood Pressure 125/80 109/63 Pulse Oximetry 96 Oxygen Flow Rate 0 Oxygen Delivery Method Room Air Oxygen Flow Rate 0 Narrative Exam Narrative: Patient states he is having difficulty getting his pain under control. Required 2 doses of IV Dilaudid yesterday. And requires oral opiates every 3-4 hours. States the pain is throughout the lumbar region. Also states he has had increased numbness tingling and pain down both lower extremities along the posterior calf and thigh right is worse than left. Able to ambulate with a walker throughout the room and work with physical therapy. Denies any nausea vomiting fever chills or shortness of breath After receiving the steroid, pain was better controlled and lower extremities N/T improved. He is ready to be discharged home. Dressing is clean and dry. Patient describes increased pain to compression of the posterior thigh and calf bilaterally. No notable signs of warmth erythema or swelling of the lower extremities. 4/5 strength in hip flexors, quadriceps, hamstrings, DF, PF, EHL bilaterally. Sensation to light touch intact throughout BLE. Resp Effort & Inspection: normal respiratory effort and able to speak in complete sentences [facility] Medical History (Updated 02/27/24 @ 10:17 by Keara Rossi RN) HTN (hypertension) ADD (attention deficit disorder) Depression Surgical History (Updated 02/27/24 @ 10:17 by Keara Rossi RN) Hx of laminectomy Hx of microdiscectomy History of right inguinal hernia repair Social History household members: spouse and children Smoking Status: Never smoker alcohol intake: current Discharge Assessment & Plan Assessment and Plan Assessment: Status post TLIF Plan of Treatment: Discharge home. Prescribed oxycodone 10mg q4 hours prn for post operative pain relief. Baseline pain control with acetaminophen 500mg qh4. Prescribed hydroxyzine 25mg q 8 hrs for post operative nausea or spasms. No bending or twisting at the waist. No lifting more than 10 lbs. Follow up in 2 weeks with [facility] for wound check. Discharge Plan Discharge Plan Patient Disposition: Home Discharge orders & Medications Prescriptions: New oxycodone 10 mg Tablet 10 mg PO Q4H PRN (Reason: Pain, Severe (7-10)) Qty: 30 0RF Continued metoprolol succinate 50 mg Tablet Extended Release 24 Hr 100 mg PO DAILY acetaminophen [Tylenol Extra Strength] 500 mg Tablet 1,000 mg PO BID PRN (Reason: Back Pain) dextroamphetamine-amphetamine [Adderall] 20 mg Tablet 20 mg PO BID Rx Instructions: administer doses at least 4-6 hours apart duloxetine 20 mg Capsule,Delayed Release(Dr/Ec) 20 mg PO DAILY Follow up/Referrals: Roya Shen MD [Physician] - 03/25/24 10:30 am Rissa Sidhu ARNP [Primary Care Provider] - Diet/Activity/Treatments Diet: Diet as Tolerated Activity: No deep bending or twisting at the waist. No lifting more than 10 pounds. Skin/Wound/Dressing Care Report to your healthcare provider any signs of infection, such as:: chills, fever, night sweats, unusual drainage and unusual redness Dressing: May shower. Keep dressings as dry as possible. If dressings become wet or dirty, may remove and replace with clean, dry gauze. No bathing or otherwise soaking incisions. Do not apply any creams, lotions, or ointments to incisions. Visit Report/Discharge Packet Instructions: DI for Prescription Opioid Use, DI for Transforaminal Lumbar Interbody Fusion Stand Alone Forms: Patient Portal/API, Stroke Signs & Symptoms, Surgery Discharge Discharge Data Primary Care Provider: Rissa Sidhu Quality VTE Deep Vein Thrombosis/Pulmonary Embolism Present on Admission: No
--- NOTE | 2024-03-12 15:46 | CM.DPNOTE ---
DC Note Discharge home w/family to assist, no needs identified from this CM team. Close outpatient follow up anticipated. YASMIN
--- NOTE | 2024-03-12 16:09 | PC.NURSE ---
Patient is A&Ox4,VSS, afebrile on RA. He ambulates frequently in the salgado and reports pain is tolerable with PRN medications q 3 hours. He is able to shower this afternoon and states he feels comfortable discharging home this afternoon. PA notified and he is cleared for discharge home. Dressing to back changed, [place] are c/d/i. He verbalizes understanding of site care, medications, s/sx of infection, activity limitations as well as follow up appointment on 03/25 with MD Shen's office. He is transported via w/ch to private vehicle with for discharge home this afternoon with all of his belongings at approximately 1600.
== END 2024-03-12 15:55 | disposition home or self-care (01) | DRG 304 ==
PROVIDERS: Admitting Provider Orthopaedic Surgery Orthopaedic Surgery of the Spine; PCP Nurse Practitioner Family; Referring Provider Orthopaedic Surgery Orthopaedic Surgery of the Spine; Visit Provider Orthopaedic Surgery Orthopaedic Surgery of the Spine
PROC: 0SG30AJ Fusion of Lumbosacral Joint with Interbody Fusion Device, Posterior Approach, Anterior Column, Open Approach (ICD-10-PCS; principal; 2024-03-10 12:15)
DX: M96.1 Postlaminectomy syndrome, not elsewhere classified (principal); M48.07 Spinal stenosis, lumbosacral region; M51.17 Intervertebral disc disorders with radiculopathy, lumbosacral region; G89.18 Other acute postprocedural pain; I10 Essential (primary) hypertension; F98.8 Other specified behavioral and emotional disorders with onset usually occurring in childhood and adolescence; F32.A Depression, unspecified
CPT/HCPCS: 72100; 76000; 97116; 97162; 97165; 97530; 97535; A9270; C1713; C9290; J0171; J0690; J1100; J1171; J2250; J2405; J2704; J3010; J3360